=== PATIENT | female | born 1985 | race Caucasian/White ===

== ENCOUNTER → 2017-12-05 | Outpatient (CLI) | payer MEDICARE, MEDICAID ==
[~2017-12-05] MED LIST: ACE3 PO; ACET-2043 PO; AMOX-362 PO; ARIP30TA10 PO; AUG875 PO; BACDS PO; BACOUD TP; CALC-949 PO; CARB15DR74 OP; CEFU250S6 PO; CEP500 PO; CETI-169 PO; CETI1SOL PO; CETY454C2 TP; CHOL10005 PO; CLIN30GE15 TP; CLINDAMYCIN; CLINDAMYCIN TOP; CLON-327 PO; CLON1 PO; COMPLETE SENIOR PO; DAR100 PO; DIAZ-308 PO; DICY20TA70 PO; DIV500ER PO; DIVA-1 PO; DOCU-416 PO; ESC10 PO; ESOM40CA42 PO; FEXO180T74 PO; FEXO180T87 PO; GUAI-244 PO; HYDR28.415 TP; IBUP200C71 PO; KET10 PO; KETO5DRO71 OP; L. A1CAP3 PO; LEVO1TAB31 PO; LEVO1TAB48 PO; LISD40PT PO; LITC450 PO; LOPE-109 PO; MENT118G TP; METF-410 PO; METH-318 PO; METH36 PO; MULT-1335 PO; MULT-1372 PO; MULT1TAB64 PO; NAPR-744 PO; OLAN10TA PO; OMEG-11 PO; OMEG500C5 PO; ONDA4TAB SL; OXYC-854 PO; OXYC-865 PO; PAL9PT PO; PALI6TAB8 PO; PROL80 PO; PROP60CA22 PO; RISP-29 PO; SODI30SP6 NS; SYSTANE OU; SYSTANEPT OP; TALC71PO2 TP; TOPI50TA92 PO; [UNRECOGNIZED DRUG - CODE] MM
--- NOTE | 2017-12-05 12:53 | RADIOLOGY IMAGING REPORT ---
FACILITY: [facility] PATIENT NAME: Giovanna Azar : 1985 MR: [id number] V: [id number] EXAM DATE: ORDERING PHYSICIAN: KIRAN MARR TECHNOLOGIST: Location[place] [facility] [place] Patient: Giovanna Azar : 1985 Visit/Account:[id number] Date of Sevice: 12/05/2017 Exam type: FOOT 2 VIEW RIGHT History: Bruising in right first toe, pain Comparison: None. Findings: There is no evidence of acute fracture dislocation in the right foot. Incidentally noted is a small right calcaneal spur. No significant arthritic changes identified IMPRESSION: 1. No acute osteoarticular abnormality right foot is seen. Incidentally noted is a small right calcaneal spur Report Dictated By: Gretchen Haq MD at 12/05/2017 12:46 PM Report E-Signed By: Gretchen Haq MD at 12/05/2017 12:47 PM WSN:[email or web address]
== END ==
LOC: RAD 10:01
PROVIDERS: ATTEND Physician Assistant
DX: M79.674 Pain in right toe(s) (principal); M79.671 Pain in right foot